=== PATIENT | male | born 1980 | race Two or more races ===

== ENCOUNTER 2021-08-23 09:26 | Emergency (ER) | payer OTHER ==
[2021-08-23 09:43] VITALS: RESP 18
[2021-08-23] MEDS ORDERED: ACETAMINOPHEN TAB 500 MG TAB PO STA (10:46)
--- NOTE | 2021-08-23 11:26 | ED ---
General Adult HPI - General Chief complaint: Upper Respiratory Infection Stated complaint: Fever,Headaches,Body Aches Time Seen by Provider: 08/23/21 10:45 Source: patient Mode of arrival: ambulatory Limitations: no limitations - History of Present Illness Initial comments: 40-year-old male with a past medical history of hypertension presents to the [facility] room for a chief complaint of COVID-19. Patient states he started to get sick yesterday. States he developed some body aches as well as a fever. He has had diarrhea. Patient did not get vaccinated for Covid. Patient did not take Tylenol today. He denies any shortness of breath or chest pain. He did test positive for COVID-19 at home today.Patient has no other complaints at this time including shortness of breath, chest pain, abdominal pain, nausea or vomiting, or visual changes. - Related Data Home Medications Medication Instructions Recorded Confirmed No Known Home Medications 08/23/21 08/23/21 Allergies Allergy/AdvReac Type Severity Reaction Status Date / Time No Known Allergies Allergy Verified 08/23/21 11:15 Review of Systems ROS Statement: Those systems with pertinent positive or pertinent negative responses have been documented in the HPI. ROS Other: All systems not noted in ROS Statement are negative. Past Medical History Past Medical History: Hypertension History of Any Multi-Drug Resistant Organisms: None Reported Past Surgical History: No Surgical Hx Reported Past Psychological History: No Psychological Hx Reported Smoking Status: Current every day smoker Past Alcohol Use History: Occasional Past Drug Use History: None Reported General Exam Limitations: no limitations General appearance: alert, in no apparent distress Head exam: Present: atraumatic Eye exam: Present: normal appearance, PERRL, EOMI. Absent: scleral icterus, conjunctival injection ENT exam: Present: normal exam, mucous membranes moist Neck exam: Present: normal inspection, full ROM. Absent: tenderness Respiratory exam: Present: normal lung sounds bilaterally. Absent: respiratory distress, wheezes Cardiovascular Exam: Present: regular rate, normal rhythm, normal heart sounds GI/Abdominal exam: Present: soft, normal bowel sounds. Absent: distended, tenderness Course Vital Signs 08/23/21 09:40 Temperature 100.4 F H Pulse Rate 107 H Respiratory 18 Rate Blood Pressure 176/111 O2 Sat by Pulse 95 Oximetry Medical Decision Making - Medical Decision Making Vitals are stable. Patient hypertensive however does have a history without symptoms of hypertension. He has a low-grade fever of 100.4. Patient did test positive for COVID-19. Patient's oxygen is stable. At this time he does qualify for antibody infusion. Patient was given this and monitored for an hour. Aware of adverse reactions possible. He will follow-up with his doctor and return here for any worsening symptoms. - Lab Data Lab Results 08/23/21 Range/Units 09:45 Coronavirus (PCR) Detected A (Not Detectd) Disposition Clinical Impression: COVID-19 Disposition: HOME SELF-CARE Condition: Good Instructions (If sedation given, give patient instructions): Coronavirus Disease 2019 (COVID-19) Additional Instructions: Please take Motrin and Tylenol for pain and fever. Take vitamin C and zinc. Follow-up with your doctor. Return to the emergency room for any worsening symptoms such as shortness of breath. Is patient prescribed a controlled substance at d/c from ED?: No Referrals: Carmelo Dolan MD [Primary Care Provider] - 1-2 days Time of Disposition: 11:25
[2021-08-23] MEDS ORDERED: SODIUM CHLORIDE 0.9% 50 ML IVPB ONE (11:45)
[2021-08-23] MEDS ORDERED: CASIRIVIMAB (REGN10933) (EUA) 600 MG, IMDEVIMAB (REGN10987) (EUA) 600 MG in SODIUM CHLO... IVPB ONE (11:45)
[2021-08-23 12:27] VITALS: TEMP 98.8
[2021-08-23 12:55] VITALS: BP 156/109; PULSE 60
== END 2021-08-23 14:03 | disposition home or self-care (01) ==
LOC: EC 09:26
DX: U07.1 COVID-19 (principal); I10 Essential (primary) hypertension; F17.200 Nicotine dependence, unspecified, uncomplicated
CPT/HCPCS: 99284; 87635; Q0244